=== PATIENT | male | born 1995 | race Caucasian/White ===

== ENCOUNTER 2020-04-20 00:48 | Emergency (ER) | payer MEDICAID ==
[~2020-04-20] VITALS: Ht 182.9 cm; Wt 99.5 kg
[2020-04-20 01:03] VITALS: Ht 182.9 cm; Wt 99.5 kg
[2020-04-20] MEDS ORDERED: ARTHROTEC EC 71 EACH PO (03:02)
[2020-04-20 03:25] VITALS: BP 138/82
== END 2020-04-20 03:26 | disposition home or self-care (01) ==
LOC: D.ER 00:48
DX: S46.092A Other injury of muscle(s) and tendon(s) of the rotator cuff of left shoulder, initial encounter (principal); X58.XXXA Exposure to other specified factors, initial encounter; Y93.9 Activity, unspecified; Y92.9 Unspecified place or not applicable